=== PATIENT | male | born 1995 | race Caucasian/White ===

== ENCOUNTER → 2017-09-17 | Outpatient (CLI) | payer BC, OTHER ==
--- NOTE | 2017-09-17 07:35 | DIAGNOSTIC IMAGING REPORT ---
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 COMPARISON STUDY: No previous studies for comparison. TECHNIQUE: Utilizing a 1.5 Destini magnet and dedicated coil, multiplanar, multi echo imaging of the left shoulder was performed without intravenous or intra-articular contrast. FINDINGS: Alignment of the left shoulder is anatomic. There is no suspicious marrow replacement. Proximal long head of the biceps tendon is intact. No glenoid labral tear is identified although the labrum is suboptimally assessed on this nonarthrogram exam. There is mild intermediate signal within the distal supraspinatus shown best on coronal image 8 of 16. This suggests tendinopathy. There is no full-thickness rotator cuff tear. There is trace edema/fluid within the subacromial/subdeltoid bursa. No joint effusion or loose bodies are identified. Note is made of moderate marrow edema within the posterior aspect of the left humeral head. There is mild cortical irregularity of the posterolateral aspect of the humeral head which may reflect an impaction fracture. No glenoid abnormality is identified on this examination. There is no cartilage abnormality within the glenohumeral joint is noted. IMPRESSION: 1. Moderate marrow edema within the posterior left humeral head with associated cortical irregularity which suggests an impaction injury with mild impaction fracture. This pattern can be seen in overhead throwing athletes. No lateral labral tear identified on this nonarthrogram exam. 2. Mild supraspinatus tendinopathy. No full-thickness rotator cuff tear. 3. Trace fluid/edema within the subacromial/subdeltoid bursa. Electronically signed by: Eamon Devi M.D. 09/17/2017 7:33 AM Dictated Date/Time: 09/17/2017 7:18 AM
== END | disposition home or self-care (01) ==
LOC: C.MRI 06:05
PROVIDERS: ATTEND Orthopaedic Surgery
DX: M25.512 Pain in left shoulder (principal); M75.32 Calcific tendinitis of left shoulder; M25.412 Effusion, left shoulder